=== PATIENT | female | born 1990 | race Caucasian/White ===

== ENCOUNTER 2020-09-13 06:32 | Emergency (ER) | payer SELFPAY ==
[~2020-09-13 06:32] MED LIST: KEFLEX CAP 500500 MG PO; PERCOCET 5/325 T1 EA PO; PROVERA10 MG PO; VISTARIL50 MG PO
[2020-09-13 07:44] LABS: HEMOGLOBIN 13.7 gm/dl (12.3-15.3); RED BLOOD COUNT 4.29 M/UL (4.00-5.10); WHITE BLOOD COUNT 6.1 K/UL (4.5-11.0)
[2020-09-13 08:02] LABS: BUN/CREATININE RATIO 21 (0-10)
[2020-09-13] MEDS ORDERED: IBUPROFEN600 MG PO (09:06)
== END 2020-09-13 09:14 | disposition home or self-care (01) ==
LOC: ER1 06:32
PROVIDERS: Emergency Medicine
DX: S10.93XA Contusion of unspecified part of neck, initial encounter (principal); S80.02XA Contusion of left knee, initial encounter; S40.012A Contusion of left shoulder, initial encounter; F17.200 Nicotine dependence, unspecified, uncomplicated; W01.0XXA Fall on same level from slipping, tripping and stumbling without subsequent striking against object, initial encounter
CPT/HCPCS: 36415; 70491; 73030; 73564; 80053; 84703; 85025; 99284; Q9967

== ENCOUNTER 2020-11-20 00:30 | Emergency (ER) | payer OTHER ==
[~2020-11-20 00:30] MED LIST changes: +IBUPROFEN600 MG PO
== END 2020-11-20 01:48 | disposition left against medical advice (07) ==
LOC: ER1 00:30
DX: Z53.21 Procedure and treatment not carried out due to patient leaving prior to being seen by health care provider (principal)